=== PATIENT | female | born 1965 | race Caucasian/White ===

== ENCOUNTER 2018-01-01 18:37 | Observation (INO) | payer SELFPAY ==
[~2018-01-01] VITALS: Ht 157.5 cm; Wt 93.2 kg
[2018-01-01] MEDS ORDERED: ASPIRIN 81 MG CHEW TAB PO ONE ×2 (18:45→20:30)
--- NOTE | 2018-01-01 19:13 | Diagnostic Imaging Report ---
EXAM: XR CHEST 1 VIEW DATE: 01/01/2018 6:42 PM INDICATION: Chest pain COMPARISON: None FINDINGS: Lines and Tubes: None Heart and Mediastinum: No acute cardiomediastinal findings. Lungs and Pleura: Minimal basilar opacities likely secondary to atelectasis and/or overlying soft tissues. Bones and Soft Tissues: No acute findings. IMPRESSION: 1. Image quality degraded by underpenetration and body habitus. No definite acute finding. See above for full details. Signed by: Dr. Emiliano Valentine MD on 01/01/2018 7:10 PM
[2018-01-01 19:15] LABS: BASOPHILS # (AUTO) 0.1 (0.0-0.1); BASOPHILS % 0.8 % (0.0-1.0); EOSINOPHILS # (AUTO) 0.6 (0.0-0.4); EOSINOPHILS % 5.1 % (0.0-6.0); HEMATOCRIT 40.3 % (34.2-44.1); HEMOGLOBIN 13.4 g/dL (12.0-16.0); LYMPHOCYTES # (AUTO) 3.5 (1.0-3.2); LYMPHOCYTES % 28.4 % (18.0-39.1); MEAN CORPUSCULAR HEMOGLOBIN 30.6 pg (28-32); MEAN CORPUSCULAR HGB CONC 33.3 g/dL (31-35); MONOCYTES # (AUTO) 0.8 (0.2-0.8); MONOCYTES % 6.3 % (4.4-11.3); NEUTROPHILS # (AUTO) 7.2 (2.1-6.9); NEUTROPHILS % 59.1 % (38.7-80.0); PLATELET COUNT 395 x10e3/uL (140-360); RED BLOOD COUNT 4.38 x10e6/uL (3.6-5.1); RED CELL DISTRIBUTION WIDTH 13.4 % (11.7-14.4)
[2018-01-01 19:25] LABS: INR 0.89; PROTHROMBIN TIME 11.3 seconds (11.9-14.5)
[2018-01-01 19:26] LABS: PARTIAL THROMBOPLASTIN TIME 23.8 seconds (23.8-35.5)
[2018-01-01 19:33] LABS: ALANINE AMINOTRANSFERASE 12 IU/L (0-55); ALBUMIN 3.4 g/dL (3.5-5.0); ALBUMIN/GLOBULIN RATIO 0.9 (0.8-2.0); ALKALINE PHOSPHATASE 76 IU/L (40-150); ANION GAP 15.2 mmol/L (8-16); BLOOD UREA NITROGEN 16 mg/dL (7-26); BUN/CREATININE RATIO 18 (6-25); CALCIUM 9.7 mg/dL (8.4-10.2); CARBON DIOXIDE 24 mmol/L (22-29); CHLORIDE 106 mmol/L (98-107); CREATINE KINASE 40 IU/L (29-168); EST GLOMERULAR FILTRATION RATE > 60 ML/MIN (60-); GLUCOSE 167 mg/dL (74-118); POTASSIUM 4.2 mmol/L (3.5-5.1); SODIUM 141 mmol/L (136-145)
[2018-01-01 19:43] LABS: BILIRUBIN,URINE NEGATIVE (NEGATIVE); CLARITY,URINE SL CLOUDY (CLEAR); COLOR,URINE YELLOW (YELLOW); KETONES,URINE NEGATIVE (NEGATIVE); LEUKOCYTE ESTERASE ,URINE TRACE (NEGATIVE); NITRITE,URINE NEGATIVE (NEGATIVE); PROTEIN,URINE DIPSTICK NEGATIVE (NEGATIVE); URINE UROBILINOGEN 0.2 mg/dL (0.2 - 1)
[2018-01-01 19:47] LABS: AMPHETAMINES SCREEN,URINE NEGATIVE (NEGATIVE); BENZODIAZEPINES SCREEN,URINE NEGATIVE (NEGATIVE); PHENCYCLIDINE SCREEN,URINE NEGATIVE (NEGATIVE)
[2018-01-01] MEDS ORDERED: ASPIR 8181 MG PO (19:52)
[2018-01-01] MEDS ORDERED: PLAVIX75 MG PO (19:52)
[2018-01-01] MEDS ORDERED: HUMULIN R100 UNIT/2 (19:52)
[2018-01-01] MEDS ORDERED: GABAPENTIN400 MG PO (19:52)
[2018-01-01] MEDS ORDERED: SEROQUEL50 MG PO (19:52)
--- NOTE | 2018-01-01 19:53 | Diagnostic Imaging Report ---
EXAM: XR CHEST 2 VIEWS DATE: 01/01/2018 7:22 PM INDICATION: Pain COMPARISON: 01/01/2018 FINDINGS: Lines and Tubes: None Heart and Mediastinum: The heart is not enlarged. Coronary artery vascular stent noted on the right. Lungs and Pleura: No pneumothorax. Minimal basilar opacities, similar to previous study, likely representing atelectasis and/or overlying soft tissues. No focal consolidation. Bones and Soft Tissues: No acute findings. IMPRESSION: 1. No acute cardiopulmonary findings. Signed by: Dr. Emiliano Valentine MD on 01/01/2018 7:49 PM
[2018-01-01 19:54] LABS: BACTERIA,URINE MANY /HPF; EPITHELIAL CELLS,URINE FEW /LPF
[2018-01-01] MEDS ORDERED: NITROGLYCERIN 0.4 MG SUBL SL PRN (20:30)
[2018-01-01] MEDS ORDERED: SODIUM CHLORIDE FLUSH 10 ML SYR INJ PRN (20:30)
[2018-01-01] MEDS ORDERED: DEXTROSE 50% SYRINGE 50 ML IV PRN (20:45)
[2018-01-01] MEDS: INSULIN REGULAR, HUMAN 100 UNIT/1 ML 3ML VIAL SQ SCH (21:00)
[2018-01-01 21:30] VITALS: BP 123/70
[2018-01-02] VITALS (9 sets, daily range): BP systolic 98–124; BP diastolic 52–87
[2018-01-02 04:30] LABS: CHOL/HDL RATIO 3.3 (3.0-3.6)
[2018-01-02 04:37] LABS: CREATINE KINASE MB 0.7 ng/mL (0-5.0)
[2018-01-02] MEDS: INSULIN REGULAR, HUMAN 100 UNIT/1 ML 3ML VIAL SQ SCH ×4 (08:18→21:43)
[2018-01-02] MEDS ORDERED: ASPIRIN 325 MG TAB EC PO SCH (09:00)
[2018-01-02] MEDS: FAMOTIDINE 20 MG/2 ML VIAL IV SCH ×2 (09:08→16:45)
[2018-01-02 12:29] LABS: CREATINE KINASE MB 0.7 ng/mL (0-5.0)
[2018-01-02] MEDS ORDERED: LEVOFLOXACIN 500MG/D5W 100ML 100 ML IV SCH (17:00)
[2018-01-02] MEDS ORDERED: ACETAMINOPHEN 325 MG TAB PO PRN (17:30)
[2018-01-02 21:11] LABS: CREATINE KINASE MB 0.7 ng/mL (0-5.0)
[2018-01-02] MEDS: NICOTINE 21 MG/EA PATCH TOP SCH (21:37)
--- NOTE | 2018-01-02 22:06 | Consultation ---
DATE OF CONSULTATION: January 02, 2018 CARDIOLOGY CONSULTATION REASON FOR CONSULTATION: Chest pain. CHIEF COMPLAINT: "My chest hurts real bad. I thought I was having a heart attack." HISTORY OF PRESENT ILLNESS: Patient is a 52-year-old female. History of coronary artery disease, status post self-reported 3 MIs and stents placed in the past most recently about a year ago at [facility]. Also, has history of smoking, noncompliance and cocaine abuse. She says she was shopping at the store yesterday, when had an episode of sharp chest pains in the middle of her chest that felt similar to her previous MIs and this is why she presented to the hospital. Patient notably has not seen product marketing consultant or a doctor for several months. She has been off her Plavix, as well as aspirin for the last several weeks, living with her friends out of a truck. Also has been doing cocaine. Denies any chest pain at this time. No diaphoresis, shortness of breath, any radiation of the chest pain. PAST MEDICAL HISTORY 1. Coronary artery disease, status post stents. 2. History of multiple myocardial infarctions. 3. Hypertension. 4. Hyperlipidemia. 5. Diabetes. 6. Noncompliance. 7. Cocaine abuse. 8. Tobacco abuse. REVIEW OF SYSTEMS: Ten-point review of systems was performed, is negative other than what was mentioned in the HPI. SOCIAL HISTORY: Patient lives with some friends in [place] currently, does not have a place of her own. She reports smoking cigarettes for the past 20 years on and off. Also reports doing cocaine once or twice a month. FAMILY HISTORY: No family history of early CAD or sudden cardiac . EXAM VITAL SIGNS: Temperature 97.2, pulse 67, respiratory rate 18, blood pressure 124/72, satting 98% on room air. EYES: Conjunctivae clear. EARS, NOSE, MOUTH, AND THROAT: Normal mucosa. No pallor or bleeding. NECK: No jugular venous distention. MUSCULOSKELETAL: Normal muscle tone and strength. No atrophy or abnormal movements. EXTREMITIES: No clubbing or cyanosis. SKIN: No venostasis changes or ulcers. GENERAL: Well-developed, obese, white female. CARDIOVASCULAR: PMI nondisplaced. Regular S1, S2. No murmurs, rubs or gallops. Normal carotid pulses. Palpable radial pulses. Palpable pedal pulses. No peripheral edema or varicosities. RESPIRATORY: No respiratory distress. LUNGS: Clear to auscultation bilaterally. ABDOMEN: Soft, nontender. No masses, no hepatosplenomegaly. NEURO AND PSYCH: Patient is alert and oriented to person, place, and time. Normal affect. ALLERGIES: REVIEWED. INPATIENT AND OUTPATIENT MEDICATIONS: Reviewed. LABORATORY DATA: Reviewed. Notable for cardiac enzymes negative times 2. Urine suggestive of UTI. Urine toxicology positive for cocaine. TELEMETRY DATA: Reviewed, shows normal sinus rhythm. ECG: Reviewed, no acute ST-T changes suggestive of ischemia. ASSESSMENT AND PLAN 1. Chest pain. 2. History of coronary artery disease, status post stents in the past. 3. History of myocardial infarction. 4. Hypertension. 5. Hyperlipidemia. 6. Diabetes. 7. Cocaine abuse. PLAN: Chest pain has typical and atypical features. Cardiac enzymes are negative times 2 so far. She has been ruled out for acute myocardial infarction. Given that she has multiple stents and was off her antiplatelet therapy, as well as describes her pain as similar to her previous MIs, will risk stratify her with a stress test tomorrow. Otherwise, no further cardiac workup recommended. Continue aspirin 81 mg daily and a high-intensity statin and risk factor control. Thank you for this consult. Will continue to follow. Job#: [id number]
[2018-01-03 05:00] VITALS: BP 108/58
[2018-01-03] MEDS: INSULIN REGULAR, HUMAN 100 UNIT/1 ML 3ML VIAL SQ SCH ×2 (07:30→11:45)
[2018-01-03 08:00] VITALS: BP 112/61
[2018-01-03] MEDS ORDERED: CLOPIDOGREL BISULFATE 75 MG TAB PO SCH (09:00)
[2018-01-03] MEDS ORDERED: ASPIRIN 81 MG CHEW TAB PO SCH (09:00)
[2018-01-03] MEDS ORDERED: REGADENOSON 0.4 MG/5 ML SYR IV ONE (10:02)
[2018-01-03 12:23] VITALS: BP 112/61
[2018-01-03 12:43] VITALS: BP 123/95
[2018-01-03] MEDS: FAMOTIDINE 20 MG/2 ML VIAL IV SCH (12:57)
[2018-01-03] MEDS: NICOTINE 21 MG/EA PATCH TOP SCH (12:57)
--- NOTE | 2018-01-03 15:19 | Progress Note ---
DATE: January 03, 2018 CARDIOLOGY PROGRESS NOTE SUBJECTIVE: No major events overnight. Complains about some lower back pain that is chronic. Otherwise, no further chest pain episodes overnight. Underwent stress test today. REVIEW OF SYSTEMS: As above, otherwise negative. OBJECTIVE VITAL SIGNS: Temperature 96.5, pulse 72, respiratory rate 16, blood pressure 123/95, satting 99% on room air. GENERAL: No acute distress. White female, well developed, obese. CARDIOVASCULAR: Regular rate and rhythm. No murmurs, rubs or gallops. Palpable carotid pulses. Palpable radial pulses. Palpable pedal pulses. LUNGS: Clear to auscultation bilaterally. No respiratory distress. ABDOMEN: Soft, nontender, nondistended. No masses. NEURO AND PSYCH: Alert and oriented to person, place, and time. Normal affect. LABORATORY DATA: Reviewed. TELEMETRY DATA: Reviewed, normal sinus rhythm. IMAGING DATA: Reviewed. Nuclear stress test performed shows transmural scar in the RCA territory, otherwise no reversible ischemia. ASSESSMENT AND PLAN 1. Chest pain. 2. History of coronary artery disease, status post stents in the past. 3. History of myocardial infarction. 4. Hypertension. 5. Hyperlipidemia. 6. Diabetes. 7. Cocaine abuse. PLAN: Ruled out for [place] with serial cardiac enzymes. Stress test today did not show any reversible ischemia. Continue her current cardiovascular medications. The patient can be discharged from a cardiovascular standpoint. No further workup or intervention needed at this time. She is to follow up as an outpatient with her primary care doctor and her primary black top raker. Thank you for this consult. Will sign off. Job#: [id number]
[2018-01-03] MEDS ORDERED: ATORVASTATIN 40 MG TAB PO SCH (21:00)
[2018-01-03] MEDS ORDERED: NICOTINE 21 MG/EA PATCH TOP SCH (21:00)
[2018-01-03] MEDS ORDERED: ATORVASTATIN 20 MG TAB PO SCH (21:00)
== END 2018-01-03 17:28 | disposition home or self-care (01) ==
LOC: ER 18:37 → IMCU 20:52
PROVIDERS: ADMIT Internal Medicine; ATTEND Internal Medicine
DX: R07.2 Precordial pain (principal); E11.42 Type 2 diabetes mellitus with diabetic polyneuropathy; Z85.43 Personal history of malignant neoplasm of ovary; I25.10 Atherosclerotic heart disease of native coronary artery without angina pectoris; Z95.5 Presence of coronary angioplasty implant and graft; Z82.49 Family history of ischemic heart disease and other diseases of the circulatory system; F14.10 Cocaine abuse, uncomplicated; I25.2 Old myocardial infarction; I10 Essential (primary) hypertension; E78.5 Hyperlipidemia, unspecified
CPT/HCPCS: 36415 ×3; 71045; 71046; 78452; 80053; 80061; 80307; 81001; 82550 ×2; 82553 ×2; 82948 ×3; 84484 ×2; 85025; 85610; 85730; 87086; 87186; 93005; 93017; 99284; A9502; G0378 ×3; J1956